=== PATIENT | male | born 1935 | race Caucasian/White ===

== ENCOUNTER 2019-09-13 13:40 | Outpatient (RCR) | payer MEDICARE, OTHER, SELFPAY ==
[2019-09-13 17:31] LABS: Basophils # 0.1 10^3/uL (0.0-0.1); Basophils % 0.3 %; Eosinophils % 0.2 %; Hematocrit 34.9 % (42.0-52.0); Hemoglobin 10.9 g/dL (11.7-16.6); Lymphocytes # 1.5 10^3/uL (0.8-4.8); Mean Corpuscular HGB Conc 31.2 g/dL (30.0-36.0); Mean Corpuscular Hemoglobin 31.9 pg (28.0-34.0); Mean Platelet Volume 10.5 fL (7.4-10.4); Monocytes # 1.1 10^3/uL (0.2-0.9); Monocytes % 6.9 %; Neutrophils # 12.6 10^3/uL (1.8-7.7); Neutrophils % 81.5 %; Nucleated Red Blood Cells % 0 %; Platelet Count 357 10^3/cmm (130-400); Red Blood Count 3.42 10^6/uL (4.1-5.3); Red Cell Distribution Width 14.8 % (12.1-15.1); White Blood Count 15.4 10^3/uL (4.0-10.0)
[2019-09-13 23:12] LABS: Alanine Aminotransferase 20 U/L (0-41); Albumin Level 3.5 g/dL (3.5-5.2); Alkaline Phosphatase 100 IU/L (40-130); Anion Gap 17.1 (5-19); Aspartate Amino Transferase 21 U/L (0-40); Blood Urea Nitrogen 24 mg/dL (8-23); Calcium 11.6 mg/Dl (8.8-10.2); Carbon Dioxide 27 mmol/L (22-29); Chloride 99 mmol/L (98-107); Globulin 3.5 g/dL (1.3-4.6); Glucose 147 mg/dL (74-106); Lactate Dehydrogenase 446 U/L (135-225); Potassium 4.1 mmol/L (3.5-5.1); Sodium 139 mmol/L (136-145); Total Bilirubin 0.6 mg/dL (0.15-1.2)
--- NOTE | 2019-09-15 08:05 | ONC FU_ITS ---
Dr. Cantrell Patient Follow-Up Note Patient: Colin Mahoney Unit #: [id number]: 1935 Dicatated By: Colin Cantrell M.D.Date of Visit:Sep 14, 2019 Onc Med Follow-up/Prog Note Chief Complaint: Lymphoma. 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 He had originally presented in 2014 with an enlarged lymph node in the left posterior cervical area. He was referred for ENT evaluation, and apparently there was a suspected nasal mass on his initial outpatient exam. He was then seen by Dr. Silvestre, and on 09/13/2015 he underwent a surgical procedure which included complete ENT exam with tonsillectomy and multiple biopsies. All of those biopsies showed benign pathology. They included the left base of tongue, left nasal cavity, left nasopharynx, and bilateral tonsils. The left nasal cavity, though, did show an antrochoanal polyp. He then underwent excisional biopsy of a level V lymph node from the left neck. Pathology on the lymph node was consistent with grade 2 follicular B-cell lymphoma. The case was referred to [facility], as there was uncertainty as to whether it was follicular lymphoma versus chronic leukocytic leukemia/small lymphocytic lymphoma with prominent proliferation centers. The final interpretation, as noted, was follicular lymphoma. His subsequent evaluation included chest CT on 09/15/2015. There were no pulmonary nodules or mass noted. There were small benign-appearing lymph nodes in the hilum and mediastinum. There was felt to be no significant adenopathy. There were findings of emphysema with mild early changes of pulmonary fibrosis at the lung bases. There was minimal stranding and increased opacification in the posterior right lower lobe and 3 month follow-up CT was recommended. PET/CT on 09/16/2015 showed low-grade FDG uptake and thickening of the left vallecula and aryepiglottic fold, felt to be consistent with known malignancy. There was no evidence of distant metastatic disease. There was postsurgical FDG uptake in the left posterior cervical triangle. A 9 mm soft tissue nodule in the left nasal cavity had SUV 2.0. I had seen him initially on 10/10/2015. At that point he was not overtly symptomatic, and he had no palpable adenopathy. In the setting of early stage, asymptomatic low-grade B-cell lymphoma, observation/expectant management was recommended. CT scan of the neck on 10/15/2016 showed stable mild thickening of the left aryepiglottic fold and no other soft tissue neck masses or lymphadenopathy. CT scans of the chest, abdomen, and pelvis at that time showed no abnormal lymphadenopathy or other evidence of neoplastic process. There was multilevel spondylosis of both the thoracic and lumbar spine. He continued observation/expectant management. As of his followup visit on he appeared stable clinically with no obvious progression of the lymphoma. His other medical illnesses include hypertension, type II diabetes, GERD, benign prostatic hypertrophy, and degenerative arthritis. He had smoked in the past for about 15 years, but he quit smoking more than 50 years ago. INTERIM HISTORY: On 03/18/2019 he was admitted to the hospital with increasing weakness. He had fallen at home about 5 days earlier. He was found to have atrial fibrillation with RVR. He also had become mildly anemic, and there was a significant increase in the BUN and creatinine, presumably due to dehydration. The transferrin saturation was low, but the ferritin level was normal. His B12 level was normal. There was improvement in the renal function with hydration. CT scans of the chest, abdomen, and pelvis showed interval development of small right pleural fluid collection with subacute left posterior lateral and left anterior lateral rib fractures. There was interval appearance of moderate right mediastinal and hilar lymphadenopathy measuring up to 4.3 cm as well as 4.1 cm right portal pulmonary window lymph node. There were subacute fractures of multiple lumbar transverse processes, and the prostate was noted to be enlarged. There was no significant lymphadenopathy within the abdomen/pelvis. He did have conversion to sinus rhythm during the hospitalization. His echocardiogram showed slightly diminished left ventricular ejection fraction of 52%. There was mild diffuse hypokinesia of the left ventricle. There was grade I/IV diastolic dysfunction. He was seen for a follow-up visit on 05/03/2019. His laboratory studies were consistent with iron deficiency, and he was started on oral iron supplementation. His stool FIT was negative. Restaging PET/CT on 07/10/2019 showed multiple new FDG positive lymph nodes, including right paratracheal, AP window, prevascular, anterior mediastinal, right pericardial, and right hilar lymph nodes. A 3.4 x 2.9 cm node in the abdominal mesentery was FDG avid with SUV 5.6. A solitary splenic lesion measuring 1.8 cm was also FDG avid with SUV 7.4. The most significant finding was development of multifocal osseous metastatic disease throughout the axial and appendicular skeleton. An index lesion involving the L3 vertebral body measuring 5.4 cm was noted to extend posteriorly in the left transverse process and pedicle with elevated SUV at 16.4. There was also significant involvement in the right side of the pelvis. His bone marrow aspiration/biopsy on 07/29/2019 showed up to 50% involvement by a B-cell lymphoma with germinal center phenotype. The B cells were noted to be positive for CD20, CD10, and BCL 6. There was weak aberrant coexpression of BCL-2. The Ki-67 was relatively high at greater than 50%, and the neoplastic cells were also noted to stain for PAX5, suggesting the possibility of evolution to a higher grade lymphoma. A prognostic profile by FISH analysis was requested, but to my knowledge the study was never completed. In the meantime, he had become progressively weaker, to the point that he was falling at home. His laboratory studies on 08/10/2019 showed decline in renal function along with development of hypercalcemia, and at that point he was admitted to the hospital. Overall, the bone marrow and clinical findings were felt to be most consistent with transformation to higher grade lymphoma. He was given IV hydration and he was treated with sodium pamidronate. He then had temporary intermediate placement, as he also had experienced significant mental status changes. He subsequently did show some improvement and he was able to return home. He is seen now for a home visit. According to his family, he initially was showing some improvement in his performance status following discharge from the intermediate. However, he has since then had further decline in his general condition. He is very weak and he mostly just sleeps in his recliner. He has poor appetite and poor oral intake, but some days he does eat a little better and some days he does function a little better. He is still able to get up on his own, but he has been prone to falling, particularly when he tries to get up at night. He does have some confusion. He is not having fever or night sweats. His ECOG score is 3. He has continued to have some difficulty swallowing. He is sometimes short of breath, and he does have some cough. He reports having chest pain occasionally. He does not complain of nausea, but he does complain that his belly is tight. His bowel function has been getting better, but recently he has been having constipation again. He has no complaints with bladder function. He has had some chronic back pain, and recently he has been having pain in his tailbone area associated with a fall at home. Medications: Acetaminophen PM 2 (500-25 mg) Tablet Oral at bedtime, Eliquis 1 Tablet (of 5 mg) Oral b.i.d., Ferrous Sulfate 1 Tablet (of 325 (65 fe) mg) Oral daily, Gabapentin 1 (100 mg) Capsule Oral b.i.d., Metoprolol Tartrate 1 Tablet (of 25 mg) Oral b.i.d., Mirtazapine 1 Tablet (of 15 mg) Oral daily, Multivitamin 1 Tablet Oral daily, Omeprazole 1 (40 mg) Capsule Delayed Release Oral daily, Tamsulosin HCl 1 Capsule (of 0.4 mg) Oral daily Allergies: Penicillins Review of Systems: Constitutional - He is very weak and he has limited activity. He mostly sleeps, but he does get up at times, and he has been prone to falling. His appetite is poor. No fever or night sweats. ECOG score is 3, ENMT - No sinus congestion/drainage. No mouth sores. No sore throat. He has difficulty swallowing, Hematologic/Lymphatic - He bruises easily, Respiratory - He has some shortness of breath. He has some cough. No pleuritic pain or hemoptysis, Cardiovascular - He has occasional chest pains. No palpitations, Gastrointestinal - He does not complain of nausea. He complains of tightness in his belly. His bowels had been better, but recently he has had constipation again. No blood in the stool or black stools, Genitourinary (M) - No dysuria or hematuria. No urinary frequency. No urgency or incontinence, Musculoskeletal - He has some pain in his tailbone, Integumentary - No skin complications, Neurologic - No headache or dizziness. He sleeps a lot, and he has some confusion, Psychiatric - No anxiety or depression. No insomnia. Physical Examination: Constitutional - He appears very weak generally. He is lethargic but arousable. He is mildly confused. He appears to have a Tae-Parsons respiration pattern, Eyes - Sclerae nonicteric. Conjunctivae clear, ENMT - Mouth is dry. There are no other lesions noted in the oral cavity, Hematologic/Lymphatic - No cervical, clavicular, or axillary lymphadenopathy noted, Respiratory - Lungs sound clear with somewhat limited air movement bilaterally, Cardiovascular - Heart rhythm is regular. There is no murmur, gallop, or rub noted, Abdomen - Soft. Liver and spleen are not enlarged. There is no abdominal mass or ascites noted and there is no inguinal adenopathy, Extremities - Mild edema. Feet are cool to touch. Dorsalis pedis pulses are palpable bilaterally, Neurologic - He does not appear to have any focal neurologic deficit. Lab/Imaging: Test performed on Sep 13, 2019 13:40 Glucose 147 mg/dL LDH, Total 446 IU/L BUN 24 mg/dL Creatinine 1.2 mg/dL Cr Clearance (Est) 50.12 mL/min Sodium 139 mmol/L Potassium 4.1 mmol/L Chloride 99 mmol/L CO2 27 mmol/L Calcium 11.6 mg/dL Protein, Total 7.0 g/dL Albumin 3.5 g/dL Globulin 3.5 g/dL Bilirubin, Total 0.6 mg/dL Alkaline Phosphatase 100 IU/L AST (SGOT) 21 IU/L ALT (SGPT) 20 IU/L WBC 15.4 10^9/L RBC 3.42 10^12/L HGB 10.9 g/dL HCT 34.9 % MCV 102.0 fl MCH 31.9 pg MCHC 31.2 g/dL RDW 14.8 % Platelet Count 357 10^9/L MPV 10.5 fL Neutrophils (Gran) 12.6 10^9/L Lymphocytes 1.5 10^9/L Monocytes 1.1 10^9/L Eosinophils 0.0 10^9/L Basophils 0.1 10^9/L Manual Lymphocytes 10.0 % Manual Monocytes 6.9 % Manual Eosinophils 0.2 % Manual Basophils 0.3 % NRBCs 0.0 /100 WBC Impression: 1. Patient with low-grade B-cell lymphoma involving a left cervical lymph node, initially diagnosed in September 2005. This is felt to be most consistent with grade 2 follicular lymphoma. Clinically his disease appeared to be stage IA, though he did not have a complete staging evaluation. Observation/expectant management was recommended. 2. Biopsy of a left nasal cavity mass was consistent with antrochoanal polyp. His other medical illnesses include: 3. Hypertension. 4. Type II diabetes. 5. GERD. 6. Benign prostatic hypertrophy. 7. Degenerative arthritis/degenerative disease of the spine. He been followed on observation/expectant management. As of this visit in April 2018 he was stable clinically with no obvious progression of the lymphoma. However, his CT scans in March 2019 showed new adenopathy in the mediastinal area, consistent with progression of the lymphoma. At that time, he also had evidence of iron deficiency anemia. The anemia has improved on oral iron supplementation. However, he is showing decline in performance status, and he has been losing weight. His restaging PET/CT shows new FDG avid adenopathy in the mediastinal area, an FDG avid node in the abdominal mesentery measuring 3.4 x 2.9 cm, and a new FDG avid splenic lesion. The most significant finding was presence of multifocal osseous metastatic disease. The pattern of disease progression appeared very atypical for low-grade lymphoma. His bone marrow aspiration/biopsy on 07/29/2019 showed greater than 50% involvement of the marrow by B-cell lymphoma with germinal center phenotype. A prognostic profile by FISH analysis was requested but apparently not completed. He then had a significant decline in his performance status, to the point that he was no longer able to function independently. He had also developed hypercalcemia. The overall clinical picture was consistent with transformation to higher grade lymphoma. At that point he was hospitalized and given IV hydration and IV sodium pamidronate. He required temporary intermediate placement, and he did improve to the extent that he was able to return home. In the setting of transformed lymphoma and poor performance status, it was felt that the likelihood of having overall clinical benefit with chemotherapy would be low, and the decision was made, at least initially, to continue with symptomatic/supportive care. He has since then had further decline in his performance status, and his overall condition and prognosis at this point appear to be very poor. Plan: Following discussion with the patient and his family, he will continue with symptomatic/supportive care, and I will now arrange for hospice referral. The main issue with his care is that he is having some confusion and he is still trying to get up on his own and is prone to falling. He is very adamant that he will not return to the intermediate. Signed By: Colin Cantrell M.D. <<Signature on File>>
== END 2019-10-08 23:59 | disposition home or self-care (01) ==
LOC: ONCMED 13:40
PROVIDERS: Family Provider Family Medicine; Visit Provider Internal Medicine Medical Oncology
DX: Z51.5 Encounter for palliative care (principal); C82.11 Follicular lymphoma grade II, lymph nodes of head, face, and neck; I10 Essential (primary) hypertension; E11.9 Type 2 diabetes mellitus without complications; K21.9 Gastro-esophageal reflux disease without esophagitis; N40.0 Benign prostatic hyperplasia without lower urinary tract symptoms; M19.90 Unspecified osteoarthritis, unspecified site; F17.210 Nicotine dependence, cigarettes, uncomplicated; I48.91 Unspecified atrial fibrillation; Z91.81 History of falling; G89.29 Other chronic pain; R41.0 Disorientation, unspecified
CPT/HCPCS: 80053; 83615; 85025; 99349